=== PATIENT | female | born 1990 | race Hispanic/Latino ===

== ENCOUNTER 2016-11-13 06:01 | Day surgery (SDC) | payer OTHER ==
[~2016-11-13 06:01] MED LIST: LACTATED RINGERS 1,000 ML IV SCH; PEPCID PO NR; VERSED IV NR
[2016-11-13] MEDS ORDERED: NACL BACTERIOSTATIC INFILTRATI ONE (07:11)
--- NOTE | 2016-11-13 07:18 | Anesthesia Day of Surgery ---
Anesthesia Day of Surgery - Day of Surgery Patient Examined: Yes Patient H&P Reviewed: Yes Patient is NPO: Yes
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
[2016-11-13] MEDS ORDERED: SUBLIMAZE ONE (07:24)
[2016-11-13] MEDS ORDERED: DIPRIVAN 10 MG/ML IV ONE ×2 (07:24→07:44)
[2016-11-13] MEDS ORDERED: XYLOCAINE MPF 2% ONE (07:24)
[2016-11-13] MEDS ORDERED: XYLOCAINE 1% 20 mL ONE (07:25)
[2016-11-13] MEDS ORDERED: MARCAINE 0.25% INFILTRATI ONE ×2 (07:25→07:47)
[2016-11-13] MEDS ORDERED: XYLOCAINE 1% 20 mL INFILTRATI ONE (07:45)
[2016-11-13] MEDS ORDERED: ZOFRAN IV PRN (08:00)
[2016-11-13] MEDS ORDERED: VANCOMYCIN/NS 1 GM/250 ML 1 GM/250 ML BAG IV NR (08:00)
--- NOTE | 2016-11-13 08:19 | Post Operative Note ---
Pre-op diagnosis: Retained External Fixator right leg Findings: See operative report. Anesthesia: GETA Surgeon: TORIN BARCENAS Estimated blood loss: minimal Pathology: none Condition: stable Disposition: same day
--- NOTE | 2016-11-13 08:20 | Discharge Summary ---
Short Stay Discharge Plan Activity: no restrictions Weight Bearing Status: Touch Down Weight Bearing Diet: regular Wound: keep clean and dry Follow up with: ROXANNA JOYCE MD [Primary Care Provider] - 7 Days
--- NOTE | 2016-11-13 08:40 | Post Anesthesia Evaluation ---
- Post Anesthesia Evaluation Patient Participated: Yes Airway Patent: Yes Stable Respiratory Function: Yes Nausea/Vomiting: No Temp > 96.8F: Yes Pain Manageable: Yes Adequeate Hydration: Yes Anesthesia Complications: No Block Receding Appropriately: Not Applicable Patient on Ventilator: No
[2016-11-13] MEDS: DILAUDID IV PRN ×4 (08:44→09:16)
--- NOTE | 2016-11-13 08:52 | XRay Report ---
RIGHT ANKLE, 2 VIEWS History: Right ankle hardware removal, right ankle pain. Findings: Limited AP and lateral fluoroscopic images were obtained during surgery. A single orthopedic screw is noted in the central portions of the talus. This appears to secure her previous talus fracture which is still visualized and appears well corticated and chronic. No acute fracture is appreciated. Please correlate with the procedural report by Dr. Cervantes. Impression: Surgical screw in the talus.
--- NOTE | 2016-11-13 10:13 | Operative Report ---
SURGEON: Grey Cervantes DPM ASSOCIATE PRODUCER: None. PREOPERATIVE DIAGNOSIS: Retained external fixator, right leg. POSTOPERATIVE DIAGNOSIS: Retained external fixator, right leg. PROCEDURE: Removal of external fixator, right leg. ANESTHESIA: General inhalational with local anesthetic consisting of 1% lidocaine plain, 0.25% Marcaine plain, 50:50 mixture x 15 mL. HEMOSTASIS: None. ESTIMATED BLOOD LOSS: Less than 5 mL. MATERIALS: None. PATHOLOGY: None. COMPLICATIONS: None. OPERATIVE SUMMARY: On this date, the patient was deemed appropriate surgical candidate, brought to the operating room and placed on the operating table in normal supine position. Following induction of adequate general inhalational anesthesia, the right foot, ankle were prepped with Betadine and alcohol prep. Infiltration of the pin sites was carried out with the local mixture and the following procedure was then carried out. removal of external fixator, right leg. Attention was directed to the right leg and foot area where Ilizarov apparatus was identified. All the bolts were loosened, pins cut and the entire frame disassembled. The wires were removed atraumatically and aseptically in appropriate technique. All the pin sites were then dressed with dry sterile dressing consisting of 4 x 4s, Kerlix followed by an Everett wrap. Normal capillary refill was retained all digits. Radiographs were obtained postoperatively confirming removal of external fixator as well as subtalar arthrodesis. The patient tolerated the above procedure and anesthesia well without complications. Vital signs stable throughout. She will be discharged with home going instructions for minimal to no weightbearing right lower extremity, toe touch, utilizing an Aircast and follow up in the office in 1 week. Keep dressings clean and dry. JOB# [id number]
[2016-11-13 14:58] VITALS: BP 99/56
== END 2016-11-13 09:55 | disposition home or self-care (01) ==
LOC: OR 06:01
PROVIDERS: ATTEND Podiatrist Foot & Ankle Surgery
DX: Z46.89 Encounter for fitting and adjustment of other specified devices (principal); F17.210 Nicotine dependence, cigarettes, uncomplicated; E66.9 Obesity, unspecified; Z68.32 Body mass index [BMI] 32.0-32.9, adult; Z88.2 Allergy status to sulfonamides; Z88.1 Allergy status to other antibiotic agents; Z88.0 Allergy status to penicillin; Z88.8 Allergy status to other drugs, medicaments and biological substances
CPT/HCPCS: 20694; 73600; 81025; 88300; J1170; J2250; J2704; J3010; J3370; J7120; 88302